=== PATIENT | female | born 1960 | race Caucasian/White ===

== ENCOUNTER 2016-05-04 07:55 | Emergency (ER) | payer BC ==
[2016-05-04] MEDS ORDERED: ASPIRIN 81 MG CHEW TAB ONE (08:10)
== END 2016-05-04 10:31 | disposition home or self-care (01) ==
LOC: ER 07:55
CPT/HCPCS: 36415; 71010; 80053; 82550; 83735; 84484; 85025; 85610; 85730; 93005